=== PATIENT | female | born 1985 | race Caucasian/White ===

== ENCOUNTER 2022-02-26 17:54 | Emergency (ER) | payer SELFPAY ==
[~2022-02-26] VITALS: Ht 160 cm; Wt 90.7 kg
[2022-02-26] MEDS ORDERED: SULF1TAB38 PO (18:15)
[2022-02-26] MEDS ORDERED: TRIM/SULFAMETH 160/800 (SEPTRA DS) TAB PO ONE (18:15)
[2022-02-26] MEDS ORDERED: ENOXAPARIN 100 MG/1 ML (LOVENOX) SYR SC ONE (18:15)
--- NOTE | 2022-02-26 18:16 | ED Lower Extremity ---
General Chief Complaint: Lower Extremity Stated Complaint: SENT FROM [facility] FOR POSS BLOOD CLOT ON LEG Nursing Triage Note: ARRIVED VIA AMB WITH COMPLAINTS OF RIGHT LOWER REDNESS/SWELLING AND PAIN. SENT HERE FROM [facility]. Source: patient, family Exam Limitations: no limitations History of Present Illness Date Seen by Provider: Feb 26, 2022 Time Seen by Provider: 18:01 Initial Comments 36-year-old female with history of hypertension presents to the emergency department today for right leg swelling. Symptoms started yesterday afternoon, noticed after she got off of work. It has tripled in size today per her report. She went to urgent care and was sent here to evaluate for possible DVT. She d enies any chest pain or shortness of breath. She has pain and swelling in the anterior portion of her right mariscal at the area of some redness. No fevers or chills nausea or vomiting. She is not on any hormone therapy no recent long distance travel, surgeries. No claudication type symptoms. Allergies and Home Medications Allergies Coded Allergies: Penicillins (Verified Allergy, Severe, EDEMA, 02/26/22) diphenhydramine (Verified Allergy, Severe, EDEMA, 02/26/22) cephalexin (Verified Allergy, Unknown, EDEMA, 02/26/22) Patient Home Medication List Home Medication List Reviewed: Yes Review of Systems Constitutional: no symptoms reported EENTM: no symptoms reported Cardiovascular: no symptoms reported Gastrointestinal: no symptoms reported Genitourinary: no symptoms reported Musculoskeletal: other (Right anterior mariscal pain, swelling) Skin: rash (Redness right anterior mariscal) Psychiatric/Neurological: No Symptoms Reported Past Gwcpusq-Glxymm-Vxmiyd Hx Patient Social History Tobacco Use?: Yes Use of E-Cig and/or Vaping dev: Yes Substance use?: Yes Substance type: Marijuana Alcohol Use?: Yes Alcohol Frequency: Once in a while Family Medical History Reviewed Nursing Family Hx No Pertinent Family Hx Physical Exam Vital Signs Vital Signs - First Documented 02/26/22 18:00 Temp 35.3 Pulse 122 Resp 16 B/P (MAP) 151/99 (116) Pulse Ox 97 O2 Delivery Room Air Capillary Refill : Less Than 3 Seconds Height, Weight, BMI Height: '" Weight: lbs. oz. kg; 35.00 BMI Method: General Appearance: WD/WN, no apparent distress HEENT: normal ENT inspection, pharynx normal Neck: non-tender, full range of motion, supple, normal inspection Cardiovascular: regular rate, rhythm, no edema, no gallop, no JVD, no murmur Respiratory: chest non-tender, lungs clear, normal breath sounds, no respiratory distress, no accessory muscle use Gastrointestinal: normal bowel sounds, non tender, soft, no organomegaly Back: normal inspection, no CVA tenderness, no vertebral tenderness Hips: bilateral hip non-tender, bilateral hip normal inspection, bilateral hip normal range of motion Legs: right leg other (Approximately 4 cm diameter area of erythema in the right anterior mariscal. Centrally there is a palpable area of induration with some mild tenderness. Some mild swelling in the area as well. No calf tenderness. Good distal pulses DP and PT. Capillary refill.) Ankles: bilateral ankle non-tender, bilateral ankle normal inspection, bilateral ankle normal range of motion Feet: bilateral foot non-tender, bilateral foot normal inspection, bilateral foot normal range of motion Neurologic/Psychiatric: alert, normal mood/affect, oriented x 3 Skin: other (Erythema as described above) Lymphatic: no adenopathy Progress/Results/Core Measures Results/Orders My Orders Orders - HUGO BRAUN DO Sulfamethoxazole/Trimet Ds Tab (Bactrim (02/26/22 18:15) Enoxaparin Injection (Lovenox Injection) (02/26/22 18:15) Vital Signs/I&O 02/26/22 18:00 Temp 35.3 Pulse 122 Resp 16 B/P (MAP) 151/99 (116) Pulse Ox 97 O2 Delivery Room Air Blood Pressure Mean: 116 Departure Communication (Admissions) Patient is hemodynamically stable. Overall low risk for DVT. I believe this is likely cellulitis we will go ahead and treat with antibiotics. Abdomen abundance of caution we will give a dose of Lovenox we will schedule for an ultrasound tomorrow as none is currently available. She denies any chest pain shortness of breath no indication for PE. Given overall she is very low risk for DVT. She be discharged home with strict return precautions for chest pain, shortness of breath and scheduled for an ultrasound tomorrow with results of her primary doctor. Impression Primary Impression: Right leg swelling Disposition: HOME, SELF-CARE Condition: Stable Departure-Patient Inst. Referrals: RENETTA HILLMAN DO (PCP) Primary Care Physician Patient Instructions: Cellulitis (Skin Infection), Adult ED Add. Discharge Instructions: I believe this is likely cellulitis, superficial skin infection. Take the antibiotics as prescribed until they are gone. Abdomen abundance of caution I have scheduled you for an ultrasound in the morning. Have this completed and the results will go to Dr. Hillman. Follow-up with his office for further treatment recommendations. Have preventatively given you a dose of blood thinning medicine here however if you develop any chest pain or shortness of breath you need to return to the emergency department immediately. Follow-up with your primary doctor for any nonemergent needs. Return to the emergency department for any severe concerns All discharge instructions reviewed with patient and/or family. Voiced understanding. Scripts Sulfamethoxazole/Trimethoprim (Bactrim Ds Tablet) 1 Each Tablet 1 EACH PO BID for 7 Days, #14 TAB Prov: HUGO BRAUN DO 02/26/22 HUGO BRAUN DO Feb 26, 2022 18:16
[2022-02-26 18:44] VITALS: BP 147/102
== END 2022-02-26 18:43 | disposition home or self-care (01) ==
LOC: ER 17:57
DX: M79.89 Other specified soft tissue disorders (principal); F17.290 Nicotine dependence, other tobacco product, uncomplicated; Z88.0 Allergy status to penicillin; Z28.310 Unvaccinated for COVID-19
CPT/HCPCS: 99284

== ENCOUNTER → 2022-02-27 | Outpatient (CLI) | payer SELFPAY ==
[~2022-02-27] MED LIST: SULF1TAB38 PO
--- NOTE | 2022-02-27 14:03 | Diagnostic Imaging Report ---
INDICATION: Right leg pain. Right leg venous Doppler study was performed in the routine fashion with color flow Doppler and waveform analysis. FINDINGS: The right common femoral vein, superficial femoral vein, popliteal vein and visualized portion of the tibial veins show normal compressibility and venous flow patterns. There is normal augmentation. IMPRESSION: No evidence of deep vein thrombosis of the major veins of the right leg. Dictated by: Dictated on workstation # [id number]
== END ==
LOC: RAD 13:09
PROVIDERS: ATTEND Emergency Medicine
DX: M79.604 Pain in right leg (principal)